=== PATIENT | male | born 1950 | race Caucasian/White ===

== ENCOUNTER 2018-05-20 09:02 | Emergency (ER) | payer BC, OTHER | END 2018-05-20 09:48 | disposition home or self-care (01) | LOC: MADERS 09:02 | DX: J01.90 Acute sinusitis, unspecified (principal); J20.8 Acute bronchitis due to other specified organisms; E11.641 Type 2 diabetes mellitus with hypoglycemia with coma; Z79.84 Long term (current) use of oral hypoglycemic drugs; Z79.899 Other long term (current) drug therapy; Z87.891 Personal history of nicotine dependence | CPT/HCPCS: 99283 ==

== ENCOUNTER 2018-08-06 09:30 | Outpatient (CLI) | payer OTHER ==
[2018-08-07 15:50] LABS: Clarity Clear (Clear); Glucose, Urine (Dipstick) 500 mg/dL (Negative); Leukocyte Negative (Negative); Nitrite Negative (Negative); Protein, Urine (Dipstick) 30 mg/dL (Neg-Trace); Specific Gravity, Urine 1.015 (1.005-1.030); pH, Urine 8.5 (5.0-9.0)
[2018-08-07 15:51] LABS: Bilirubin Negative (Negative); Blood, Urine Negative (Negative); Urobilinogen 0.2 mg/dL (0.2-1.0)
[2018-08-07 15:52] LABS: Carbon Dioxide 28 mmol/L (23-31); Chloride 101 mmol/L (98-107); Potassium 4.3 mmol/L (3.5-5.1); Sodium 137 mmol/L (136-145)
[2018-08-07 16:22] LABS: Albumin 4.1 g/dL (3.4-4.8); Anion Gap 12 mmol/L (10-20); BUN (Urea Nitrogen) 16 mg/dL (8.4-25.7); Bilirubin, Total 0.3 mg/dL (0.2-1.2); Calc. Creatinine Clearance 0 mL/min (70-130); Calcium 9.3 mg/dL (7.8-10.44); Estimated GFR-MDRD 63; Glucose 197 mg/dL (80-115); Protein, Total 7.1 g/dL (5.8-8.1)
[2018-08-07 16:23] LABS: ALT (SGPT) 59 U/L (8-55); AST (SGOT) 32 U/L (5-34); Alkaline Phosphatase 59 U/L (40-150)
[2018-08-07 19:27] LABS: Follow-up Chemistry Comp? YES; Follow-up Result - Chemistry REPORT FAXED
[2018-08-08 15:40] LABS: Creatinine, Urine 116.27 mg/dL (63-166); Microalbumin Urine 2.3 mg/dL (0.5-50.0); Microalbumin/Creat Ratio 19.8 mg/g (Less than 30)
== END 2018-08-06 09:31 | disposition home or self-care (01) ==
LOC: MADLAB 09:30
PROVIDERS: ATTEND Orthopaedic Surgery
DX: E11.65 Type 2 diabetes mellitus with hyperglycemia (principal)
CPT/HCPCS: 80053; 81003; 82043

== ENCOUNTER 2018-09-19 12:51 | Emergency (ER) | payer OTHER ==
[2018-09-19] MEDS ORDERED: predniSONE 20 MG TAB ONE (13:35)
== END 2018-09-19 13:40 | disposition home or self-care (01) ==
LOC: MADERS 12:51
DX: J01.90 Acute sinusitis, unspecified (principal); E11.9 Type 2 diabetes mellitus without complications; Z87.891 Personal history of nicotine dependence; Z79.899 Other long term (current) drug therapy; Z79.84 Long term (current) use of oral hypoglycemic drugs
CPT/HCPCS: 99283; J7506